=== PATIENT | female | born 1965 | race Caucasian/White ===

== ENCOUNTER 2017-08-02 07:13 | Day surgery (SDC) | payer BC ==
[~2017-08-02 07:13] MED LIST: BUPIVACAINE 0.25%/EPI (MDV) 50 ML VIAL INJ
[2017-08-02] MEDS ORDERED: CEFAZOLIN 1 GM INJ (08:56)
[2017-08-02] MEDS ORDERED: ROCURONIUM 50 MG INJ (08:56)
[2017-08-02] MEDS ORDERED: FENTAnyl 50 MCG/ML VIAL (08:56)
[2017-08-02] MEDS ORDERED: MIDAZOLAM 1 MG/ML 2 ML INJ (08:56)
[2017-08-02] MEDS ORDERED: NEOSTIGMINE 3 MG/3 ML SYRINGE (08:56)
[2017-08-02] MEDS ORDERED: ONDANSETRON 4 MG INJ (08:56)
[2017-08-02] MEDS ORDERED: DEXAMETHASONE 4 MG/ML 1 ML INJ (08:56)
[2017-08-02] MEDS ORDERED: PROPOFOL 20 ML (08:56)
[2017-08-02] MEDS ORDERED: SUGAMMADEX SODIUM 200 MG/2 ML VIAL IV ×2 (09:48→11:35)
[2017-08-02] MEDS ORDERED: METOCLOPRAMIDE 10 MG INJ (09:49)
[2017-08-02] MEDS: POLYMYXIN/BACITRACIN 1L IRRIG (10:46)
[2017-08-02] MEDS ORDERED: KETOROLAC 30 MG INJ (10:50)
[2017-08-02] MEDS ORDERED: MEPERIDINE 25 MG INJ IV (11:00)
[2017-08-02] MEDS ORDERED: ALBUTEROL 0.083% (NEB) 2.5 MG/3 ML AMP HHN (11:00)
[2017-08-02] MEDS ORDERED: DIPHENHYDRAMINE 50 MG INJ IV (11:00)
[2017-08-02] MEDS ORDERED: IPRATROPIUM (NEB) 0.5 MG/2.5 ML AMP HHN (11:00)
[2017-08-02] MEDS ORDERED: OXYCODONE/ACETAMINOPHEN (5/325) TAB PO ×2 (11:00)
[2017-08-02] MEDS ORDERED: FENTAnyl 50 MCG/ML VIAL IV ×3 (11:00)
[2017-08-02] MEDS ORDERED: LABETALOL HCL 20MG INJ IV (11:00)
[2017-08-02] MEDS ORDERED: TRIMETHOBENZAMIDE 100 MG/ML VIAL IM (11:00)
[2017-08-02] MEDS ORDERED: hydrALAzine 20 MG INJ IV (11:00)
[2017-08-02] MEDS ORDERED: MIDAZOLAM 1 MG/ML 2 ML INJ IV (11:00)
[2017-08-02] MEDS ORDERED: EPHEDrine SULFATE 50 MG/5 ML SYG IV (11:00)
[2017-08-02] MEDS ORDERED: HYDROmorphONE (0.2 MG/ML) 10ML SYG IV ×3 (11:00)
[2017-08-02] MEDS ORDERED: ONDANSETRON 4 MG INJ IV (12:00)
[2017-08-02] MEDS ORDERED: IBUPROFEN 600 MG TAB PO (12:00)
[2017-08-02] MEDS ORDERED: HYDROCODONE/APAP (5/325) TAB PO (12:00)
[2017-08-02] MEDS ORDERED: morphine 2 MG INJ IV (12:00)
[2017-08-02] MEDS: ONDANSETRON 4 MG INJ IV (12:31)
[2017-08-02] MEDS: HYDROCODONE/APAP (5/325) TAB PO (14:03)
== END 2017-08-02 15:20 | disposition home or self-care (01) ==
LOC: SDS 07:13
DX: K43.6 Other and unspecified ventral hernia with obstruction, without gangrene (principal); K42.0 Umbilical hernia with obstruction, without gangrene; E11.9 Type 2 diabetes mellitus without complications; E66.9 Obesity, unspecified; Z68.22 Body mass index [BMI] 22.0-22.9, adult
CPT/HCPCS: 49561; 82962; 84703; 88305